=== PATIENT | female | born 1935 | race Caucasian/White ===

== ENCOUNTER 2023-09-18 15:41 | Emergency (ER) | payer MEDICARE ==
[~2023-09-18] VITALS: Ht 157.5 cm; Wt 48.0 kg
[~2023-09-18 15:41] MED LIST: AMLODIPINE10 MG PO; CALCIUM + D600 MG PO; CO Q-10100 MG PO; EC ASPIRIN325 MG PO; LASIX 20 MG TAB20 MG PO; METO100T50 PO; PRAVACHOL40 MG PO; PRAVASTATIN40 MG PO; ZYRTEC10 MG PO
[2023-09-18 16:14] VITALS: BP 145/79
[2023-09-18 16:30] VITALS: BP 150/68
[2023-09-18 16:45] VITALS: BP 142/59
[2023-09-18] MEDS ORDERED: HYDROCO/APAP1 TA9 PO (16:58)
[2023-09-18 17:00] VITALS: BP 140/62
[2023-09-18 17:20] VITALS: BP 140/62
== END 2023-09-18 17:30 | disposition home or self-care (01) ==
LOC: ED 15:41
DX: M25.572 Pain in left ankle and joints of left foot (principal); M25.562 Pain in left knee; I10 Essential (primary) hypertension